=== PATIENT | female | born 1940 | race Caucasian/White ===

== ENCOUNTER 2020-10-04 03:10 | Emergency (ER) | payer MEDICARE, BC ==
[~2020-10-04] VITALS: Ht 160 cm; Wt 49.0 kg
[2020-10-04 04:00] LABS: GFR > 60 ML/MIN (>=60 (CALC)); GFR FOR AFR.AMER. > 60 ML/MIN (>=60 (CALC))
[2020-10-04 04:01] LABS: HEMATOCRIT 43.6 % (37.0-47.0); HEMOGLOBIN 14.5 g/dl (12.0-16.0); IMMATURE GRANULOCYTES 0.6 % (0.0-5.0); MEAN CELL VOLUME 92.6 fL CALC (80.0-100.0); MEAN CORPUSCULAR HGB 30.8 pG CALC (26.0-32.0); MEAN CORPUSCULAR HGB CONC 33.3 g/dL CAL (32.0-36.0); PLATELET COUNT 280 thou/uL (130-400); RED BLOOD COUNT 4.71 mill/uL (4.20-5.60)
[2020-10-04 04:05] LABS: MANUAL DIFFERENTIAL YES
[2020-10-04 04:20] LABS: ALBUMIN 4.3 g/dL (3.2-5.0); ALKALINE PHOSPHATASE 55 u/l (38-126); AMYLASE 76 u/l (30-110); ANION GAP 13 (6-22 (CALC)); BUN 26 mg/dL (8-23); BUN/CREATININE RATIO 49 (12-20 (CALC)); CARBON DIOXIDE 29 mmol/l (22-30); CHLORIDE 95 mmol/l (95-108); CREATININE 0.5 mg/dL (0.5-1.0); GFR > 60 ML/MIN (>=60 (CALC)); GFR FOR AFR.AMER. > 60 ML/MIN (>=60 (CALC)); LIPASE 49 u/l (23-300); POTASSIUM 3.8 mmol/l (3.5-5.1); SGOT/AST 32 u/l (9-36); SODIUM 133 mmol/l (137-146); TOTAL PROTEIN 7.3 g/dL (6.3-8.2)
[2020-10-04 04:21] LABS: ACT PARTIAL THROMBO TIME 22.2 SECONDS (20.0-32.5); PROTHROMBIN TIME 10.4 SECONDS (9.0-12.5)
[2020-10-04 04:40] LABS: BAND 2 % (0-8)
[2020-10-04 06:00] VITALS: BP 191/82
[2020-10-04] MEDS ORDERED: DILTIAZEM HCL120 M3 PO (07:43)
[2020-10-04] MEDS ORDERED: EVISTA60 MG PO (07:44)
[2020-10-04] MEDS ORDERED: LEVOTHYROXIN112 MC1 PO (07:44)
[2020-10-04] MEDS ORDERED: TRAZODONE100 MG PO (07:45)
[2020-10-04] MEDS ORDERED: METOPROLOL TART50 MG PO (07:46)
[2020-10-04] MEDS ORDERED: XALATAN 0.005%2.5 ML OU (07:46)
[2020-10-04] MEDS ORDERED: BRIMONIDINE0.2 % OU (07:48)
[2020-10-04] MEDS ORDERED: TIMOLOL 0.5%5 ML OU (07:48)
[2020-10-04] MEDS ORDERED: MAXZIDE PO (07:49)
[2020-10-04] MEDS ORDERED: CO Q10200 MG PO (07:50)
[2020-10-04] MEDS ORDERED: CALCIUM &MAG PO (07:51)
== END 2020-10-04 06:25 ==
LOC: ED 03:10
DX: K57.20 Diverticulitis of large intestine with perforation and abscess without bleeding (principal); J44.9 Chronic obstructive pulmonary disease, unspecified; Z20.822 Contact with and (suspected) exposure to COVID-19
CPT/HCPCS: Q9967